=== PATIENT | female | born 1950 ===

== ENCOUNTER 2018-04-15 12:56 | Inpatient (IN) | payer OTHER ==
[~2018-04-15] VITALS: Ht 152.4 cm; Wt 55.3 kg
[2018-04-15] MEDS ORDERED: ZYRTEC10 M3 PO (13:41)
[2018-04-15] MEDS ORDERED: TOPROL XL25 MG PO (13:41)
[2018-04-15] MEDS ORDERED: ZANTAC300 MG PO (13:41)
[2018-04-15] MEDS ORDERED: LIPITOR20 MG PO (13:41)
[2018-04-15] MEDS ORDERED: FOLGARD TABLET1 EACH PO (13:42)
[2018-04-15] MEDS ORDERED: COMPLETE OMEGA1 EACH PO (13:42)
[2018-04-15] MEDS ORDERED: FIORICET PO (13:43)
[2018-04-15] MEDS ORDERED: TRANXE PO (13:43)
[2018-04-15] MEDS ORDERED: NEURONTIN300 MG PO (13:44)
[2018-04-15] MEDS ORDERED: NAPR500T14 PO (13:44)
[2018-04-15] MEDS ORDERED: ZANAFLEX4 M1 PO (13:45)
[2018-04-15] MEDS ORDERED: DESYREL PO (13:45)
== END 2018-04-24 13:08 | disposition home health service (06) | DRG 330 ==
LOC: SURG 04-21 05:25 → O/R 04-21 05:25 → SURH 04-21 10:30 → SURG 04-21 11:01 → SURH 04-21 14:00 → SURG 04-21 18:22
PROVIDERS: Colon & Rectal Surgery
PROC: 0DJD8ZZ Inspection of Lower Intestinal Tract, Via Natural or Artificial Opening Endoscopic (ICD-10-PCS; 2018-04-21)
PROC: 0DTN4ZZ Resection of Sigmoid Colon, Percutaneous Endoscopic Approach (ICD-10-PCS; principal; 2018-04-21 10:30)
DX: K57.32 Diverticulitis of large intestine without perforation or abscess without bleeding (principal); D62 Acute posthemorrhagic anemia; I11.9 Hypertensive heart disease without heart failure; E78.00 Pure hypercholesterolemia, unspecified; F41.9 Anxiety disorder, unspecified; J30.9 Allergic rhinitis, unspecified; G47.33 Obstructive sleep apnea (adult) (pediatric); G43.909 Migraine, unspecified, not intractable, without status migrainosus

== ENCOUNTER 2019-02-05 08:25 | Day surgery (SDC) | payer OTHER ==
[~2019-02-05 08:25] MED LIST: COMPLETE OMEGA1 EACH PO; DESYREL PO; FIORICET PO; FOLGARD TABLET1 EACH PO; LIPITOR20 MG PO; NAPR500T14 PO; NEURONTIN300 MG PO; TOPROL XL25 MG PO; TRANXE PO; ZANAFLEX4 M1 PO; ZANTAC300 MG PO; ZYRTEC10 M3 PO
== END 2019-02-05 13:05 | disposition home or self-care (01) ==
LOC: AMB-ENDOS 08:25
DX: K57.32 Diverticulitis of large intestine without perforation or abscess without bleeding (principal); K64.1 Second degree hemorrhoids